=== PATIENT | female | born 1960 | race African-American/Black ===

== ENCOUNTER 2019-05-07 11:37 | Emergency (ER) | payer MEDICAID ==
[~2019-05-07] VITALS: Ht 170.2 cm; Wt 91.0 kg
[2019-05-07] MEDS ORDERED: FAMOTIDINE 20MG TABLET PO ONE (15:30)
[2019-05-07] MEDS ORDERED: DIPHENHYDRAMINE 50MG CAPSULE PO ONE (15:30)
[2019-05-07] MEDS ORDERED: DEXAMETHASONE 10 MG/ML VIAL IV ONE (15:30)
[2019-05-07] MEDS ORDERED: DEXAMETHASONE 10 MG/ML VIAL PO ONE (15:45)
[2019-05-07] MEDS ORDERED: DEXAMETHASONE 0.5MG/5ML ORAL SYR PO ONE (16:00)
[2019-05-07] MEDS ORDERED: DEXAMETHASONE 4MG TABLET PO ONE (16:15)
[2019-05-07 16:56] VITALS: BP 140/87
== END 2019-05-07 17:18 | disposition home or self-care (01) ==
LOC: ER 11:37
DX: T78.3XXA Angioneurotic edema, initial encounter (principal); I10 Essential (primary) hypertension; Z88.0 Allergy status to penicillin; Z90.710 Acquired absence of both cervix and uterus
CPT/HCPCS: 99284; J8540; Q0163

== ENCOUNTER 2019-06-09 15:07 | Emergency (ER) | payer MEDICAID ==
[~2019-06-09] VITALS: Ht 160 cm; Wt 83.0 kg
[2019-06-09 15:12] VITALS: BP 120/77
[2019-06-09] MEDS ORDERED: LORATADINE 10MG TABLET PO ONE (16:15)
[2019-06-09] MEDS ORDERED: PREDNISONE 20MG TABLET PO ONE (16:15)
[2019-06-09] MEDS ORDERED: DIPHENHYDRAMINE 25MG CAPSULE PO ONE (16:15)
== END 2019-06-09 17:48 | disposition home or self-care (01) ==
LOC: ER 15:07
DX: T78.1XXA Other adverse food reactions, not elsewhere classified, initial encounter (principal); R22.0 Localized swelling, mass and lump, head; X58.XXXA Exposure to other specified factors, initial encounter; I10 Essential (primary) hypertension
CPT/HCPCS: 99284; J7512; Q0163